=== PATIENT | male | born 1990 | race Caucasian/White ===

== ENCOUNTER 2024-12-10 07:29 | Emergency (ER) | payer OTHER ==
[~2024-12-10] VITALS: Ht 188 cm; Wt 102.3 kg
[2024-12-10 07:35] VITALS: TEMP 98.2
[2024-12-10] MEDS: TETanus/Pertussis (Acell)/Diphther VAC/PF (Tdap-Adult) 0.5ml syringe IMVAC ONE (08:31)
[2024-12-10 08:47] VITALS: BP 129/76; PULSE 59; RESP 18; O2SAT 97
== END 2024-12-10 08:53 | disposition home or self-care (01) ==
LOC: ER 07:29
DX: T24.112A Burn of first degree of left thigh, initial encounter (principal); V89.2XXA Person injured in unspecified motor-vehicle accident, traffic, initial encounter; Y93.89 Activity, other specified; Y92.89 Other specified places as the place of occurrence of the external cause; Y99.8 Other external cause status
CPT/HCPCS: 16000; 90471; 90715; 99283; A6213; A6449